=== PATIENT | female | born 1975 | race American Indian/Alaskan Native ===

== ENCOUNTER 2019-03-30 18:06 | Emergency (ER) | payer OTHER ==
--- NOTE | 2019-03-30 18:18 | Event Note ---
ED Screening Note Date of service: 03/30/19 Time: 18:16 ED Screening Note: 43 y o f presents with fever, vomitting, diarhea, with headache x 2days This initial assessment/diagnostic orders/clinical plan/treatment(s) is/are subject to change based on patients health status, clinical progression and re- assessment by fellow clinical providers in the ED. Further treatment and workup at subsequent clinical providers discretion. Patient/guardian urged not to elope from the ED as their condition may be serious if not clinically assessed and managed. Initial orders include: labs,ua acc eval
[2019-03-30] MEDS ORDERED: IBUPROFEN 600 MG TAB PO ONE ×2 (18:20)
[2019-03-30 18:48] LABS: Basophils % (Auto) 0.6 % (0.0-1.8); Eosinophils % (Auto) 0.1 % (0.0-4.3); Hematocrit 37.9 % (30.3-42.9); Hemoglobin 12.6 gm/dl (10.1-14.3); Lymphocytes # (Auto) 0.6 K/mm3 (1.2-5.4); Lymphocytes % (Auto) 17.9 % (13.4-35.0); Mean Corpuscular HGB Conc 33 % (30-34); Mean Corpuscular Volume 92 fl (79-97); Monocytes # (Auto) 0.4 K/mm3 (0.0-0.8); Monocytes % (Auto) 10.3 % (0.0-7.3); Platelet Count 204 K/mm3 (140-440); Red Blood Count 4.12 M/mm3 (3.65-5.03); Red Cell Distribution Width 12.8 % (13.2-15.2)
[2019-03-30 19:17] LABS: Alanine Aminotransferase 9 units/L (7-56); Albumin 3.9 g/dL (3.9-5); BUN/Creatinine Ratio 15; Blood Urea Nitrogen 12 mg/dL (7-17); Calcium 8.9 mg/dL (8.4-10.2)
[2019-03-30 19:18] LABS: Hemolysis Index 2
[2019-03-30] MEDS ORDERED: FAMOTIDINE 20 MG/2 ML INJ IV ONE (20:28)
[2019-03-30] MEDS ORDERED: SODIUM CHLORIDE 0.9% 1000 ML 1,000 ML IV ONE ×2 (20:28→21:12)
[2019-03-30] MEDS ORDERED: ONDANSETRON 4 MG/2 ML INJ IV ONE (20:28)
--- NOTE | 2019-03-30 20:49 | XRay Report ---
CHEST 2 VIEWS INDICATION / CLINICAL INFORMATION: COUGH; Pt. c/o N/V/D, GR, and fever. . COMPARISON: None available. FINDINGS: SUPPORT DEVICES: None. HEART / MEDIASTINUM: The heart size and pulmonary vasculature are normal. LUNGS / PLEURA: No significant pulmonary or pleural abnormality. No pneumothorax. ADDITIONAL FINDINGS: No significant additional findings. IMPRESSION: No acute findings. There is no evidence of pneumonia. Signer Name: Ananda Alatorre MD Signed: 03/30/2019 8:45 PM Workstation Name: [id number]
[2019-03-30] MEDS ORDERED: MORPHINE 4 MG/1 ML INJ IV ONE (21:10)
[2019-03-30] MEDS ORDERED: METOCLOPRAMIDE 10 MG/2 ML INJ IV ONE (21:10)
[2019-03-30] MEDS ORDERED: diphenhydrAMINE 50 MG/ML VIAL IV ONE (21:11)
--- NOTE | 2019-03-30 22:23 | Cat Scan Report ---
CT OF THE ABDOMEN AND PELVIS WITH INTRAVENOUS CONTRAST INDICATION / CLINICAL INFORMATION: Right lower quadrant pain. TECHNIQUE: The patient received 100 cc Omnipaque [address] scans at this location are performed using CT dose reduction for ALARA by means of automated exposure control. COMPARISON: None available. FINDINGS: ABDOMEN: There is a 5 mm nonobstructive calculus in the lower pole the right kidney. The liver, splee n, gallbladder, bile ducts, pancreas, adrenal glands, left kidney and bowel are normal. No adenopathy is seen. The lung bases are clear. PELVIS: The distal ureters and urinary bladder are normal. There is a 1.8 cm corpus luteal cyst in th e right ovary without free fluid. The uterus and left ovary are normal. A normal appendix is present and there is no evidence of diverticulitis. I do not identify a hernia. No acute osseous abnormality is seen. IMPRESSION: 1. No CT evidence of acute appendicitis. 2. Small corpus luteal cyst in the right ovary is a physiologic finding. 3. Nonobstructive right renal calculus. Signer Name: Ananda Alatorre MD Signed: 03/30/2019 10:18 PM Workstation Name: [id number]
[2019-03-30 23:57] LABS: Bilirubin,Urine NEG (Negative); Blood,Urine NEG (Negative); Color,Urine Yellow (Yellow); Mucus,Urine FEW /HPF; Protein,Urine <15 mg/dL mg/dL (Negative); Urobilinogen,Urine < 2.0 mg/dL (<2.0)
--- NOTE | 2019-03-31 01:05 | Emergency Department Report ---
<ALIYAHASHVINNaimaHERIBERTO - Last Filed: 03/31/19 01:00> ED N/V/D HPI - General Chief complaint: Nausea/Vomiting/Diarrhea Stated complaint: MIGRAINE/NAUSEA Source: patient Mode of arrival: Wheelchair Limitations: No Limitations - History of Present Illness Initial comments: Patient is a 43-year-old Togolese female with no past medical history presented to the ED with complaint of acute onset persistent severe diffuse body aches and pains, nasal and sinus congestion, dry cough, intermittent nausea and vomiting and diarrhea, abdominal pain in the right lower quadrant. An intermittent fever of up to 102F for the last 3 days, worse in the last 12 hours. Patient states that she's not been able to keep anything down since the onset of these symptoms. Patient also states that there is not homicidal similar symptoms since she lives alone. patient denies chest pain, shortness of breath, dizziness, syncope, dysuria, urinary frequency and urgency, vaginal bleeding, vaginal discharge, palpitations or headache. MD complaint: nausea, vomiting, diarrhea, abdominal pain, other (fever, headache, lack of appetite) -: Sudden, days(s) (4) Description of Vomiting: food contents, watery Description of Diarrhea: water Associated Abdominal Pain: Yes (RLQ pain) Location: RLQ Radiation: none Severity: severe Pain Scale: 8 Quality: cramping, aching, sharp Consistency: constant Improves with: none Worsens with: none Context: sick contacts Associated Symptoms: denies other symptoms, myalgias, cough, fever/chills, headaches, loss of appetite, malaise, nausea/vomiting. denies: chest pain, diaphoresis, rash, dysuria, shortness of breath, syncope, weakness, other - Related Data Previous Rx's Medication Instructions Recorded Last Taken Type Acetaminophen/Codeine [Tylenol 1 tab PO Q6H PRN #12 tab 03/31/19 Unknown Rx /Codeine # 3 tab] Amoxicillin/Potassium Clav 1 each PO Q12H #20 tablet 03/31/19 Unknown Rx [Augmentin 875-125 Tablet] Famotidine [Pepcid] 20 mg PO Q12H #60 tablet 03/31/19 Unknown Rx Ketorolac [Toradol] 10 mg PO Q8H PRN #20 tablet 03/31/19 Unknown Rx Ondansetron [Zofran ODT TAB] 8 mg PO Q8HR PRN #20 tab.rapdis 03/31/19 Unknown Rx Tamsulosin [Flomax] 0.4 mg PO QDAY #10 03/31/19 Unknown Rx Allergies Allergy/AdvReac Type Severity Reaction Status Date / Time azithromycin [From Zithromax] Allergy Hives Verified 03/31/19 01:23 doxycycline AdvReac Hives Verified 03/31/19 01:22 ED Review of Systems Constitutional: chills, fever, malaise Eyes: denies: eye pain, eye discharge, vision change ENT: congestion. denies: ear pain, throat pain Respiratory: cough. denies: shortness of breath, wheezing Cardiovascular: denies: chest pain, palpitations Endocrine: no symptoms reported Gastrointestinal: abdominal pain, nausea, vomiting, diarrhea Genitourinary: denies: urgency, dysuria, discharge Musculoskeletal: back pain, arthralgia, myalgia. denies: joint swelling Skin: denies: rash, lesions Neurological: headache. denies: weakness, paresthesias Psychiatric: denies: anxiety, depression Hematological/Lymphatic: denies: easy bleeding, easy bruising ED Past Medical Hx - Past Medical History Previous Medical History?: Yes Hx Hypertension: Yes - Surgical History Past Surgical History?: No - Medications Home Medications: Home Medications Medication Instructions Recorded Confirmed Last Taken Type Acetaminophen/Codeine [Tylenol 1 tab PO Q6H PRN #12 tab 03/31/19 Unknown Rx /Codeine # 3 tab] Amoxicillin/Potassium Clav 1 each PO Q12H #20 tablet 03/31/19 Unknown Rx [Augmentin 875-125 Tablet] Famotidine [Pepcid] 20 mg PO Q12H #60 tablet 03/31/19 Unknown Rx Ketorolac [Toradol] 10 mg PO Q8H PRN #20 tablet 03/31/19 Unknown Rx Ondansetron [Zofran ODT TAB] 8 mg PO Q8HR PRN #20 tab.rapdis 03/31/19 Unknown Rx Tamsulosin [Flomax] 0.4 mg PO QDAY #10 03/31/19 Unknown Rx ED Physical Exam - General Limitations: No Limitations General appearance: alert, in no apparent distress - Head Head exam: Present: atraumatic, normocephalic, normal inspection - Eye Eye exam: Present: normal appearance, PERRL, EOMI Pupils: Present: normal accommodation - ENT ENT exam: Present: normal orophraynx, mucous membranes moist, other (grossly congested nasal passages, frontal sinus tenderness to palpation) - Neck Neck exam: Present: normal inspection, full ROM - Respiratory Respiratory exam: Present: normal lung sounds bilaterally. Absent: respiratory distress, wheezes, rales, rhonchi, chest wall tenderness, accessory muscle use, decreased breath sounds, prolonged expiratory - Cardiovascular Cardiovascular Exam: Present: regular rate, normal rhythm, normal heart sounds. Absent: systolic murmur, diastolic murmur, rubs, gallop - GI/Abdominal GI/Abdominal exam: Present: soft, tenderness (mildly tender to palpation of right lower quadrant, no guarding), normal bowel sounds. Absent: distended, guarding, rebound, hyperactive bowel sounds, organomegaly - Extremities Exam Extremities exam: Present: normal inspection, full ROM, normal capillary refill - Back Exam Back exam: Present: normal inspection, full ROM. Absent: tenderness, CVA tenderness (R), muscle spasm, paraspinal tenderness - Neurological Exam Neurological exam: Present: alert, oriented X3, CN II-XII intact, normal gait, reflexes normal - Psychiatric Psychiatric exam: Present: normal affect, normal mood - Skin Skin exam: Present: warm, dry, intact, normal color. Absent: rash ED Medical Decision Making - Lab Data Result diagrams: 03/30/19 18:21 03/30/19 18:21 - Radiology Data Radiology results: [place] [address] Cat Scan Report Signed Patient: WALDEMAR BRIGGS MR#: [id number] 60 : 1975 Acct:[id number] Age/Sex: 43 / F ADM Date: 03/30/19 Loc: ED Attending Dr: Ordering Physician: OLIVER LEBRON Date of Service: 03/30/19 Procedure(s): CT abdomen pelvis w con Accession Number(s): [id number] cc: OLIVER LEBRON CT OF THE ABDOMEN AND PELVIS WITH INTRAVENOUS CONTRAST INDICATION / CLINICAL INFORMATION: Right lower quadrant pain. TECHNIQUE: The patient received 100 cc Omnipaque [address] scans at this location are performed using CT dose reduction for ALARA by means of automated exposure control. COMPARISON: None available. FINDINGS: ABDOMEN: There is a 5 mm nonobstructive calculus in the lower pole the right kidney. The liver, spleen, gallbladder, bile ducts, pancreas, adrenal glands, left kidney and bowel are normal. No adenopathy is seen. The lung bases are clear. PELVIS: The distal ureters and urinary bladder are normal. There is a 1.8 cm corpus luteal cyst in the right ovary without free fluid. The uterus and left ovary are normal. A normal appendix is present and there is no evidence of diverticulitis. I do not identify a hernia. No acute osseous abnormality is seen. IMPRESSION: 1. No CT evidence of acute appendicitis. 2. Small corpus luteal cyst in the right ovary is a physiologic finding. 3. Nonobstructive right renal calculus. Signer Name: Ananda Alatorre MD Signed: 03/30/2019 10:18 PM Workstation Name: [id number] Transcribed By: RT Dictated By: Ananda Alatorre MD Electronically Authenticated By: Ananda Alatorre MD Signed Date/Time: 03/30/19 2218 Findings [facility] [address] [place] [address] XRay Report Signed Patient: WALDEMAR BRIGGS MR#: [id number] 60 : 1975 Acct:[id number] Age/Sex: 43 / F ADM Date: 03/30/19 Loc: ED Attending Dr: Ordering Physician: OLIVER LEBRON Date of Service: 03/30/19 Procedure(s): XR chest routine 2V Accession Number(s): [id number] cc: OLIVER LEBRON Fluoro Time In Minutes: CHEST 2 VIEWS INDICATION / CLINICAL INFORMATION: COUGH; Pt. c/o N/V/D, GR, and fever. . COMPARISON: None available. FINDINGS: SUPPORT DEVICES: None. HEART / MEDIASTINUM: The heart size and pulmonary vasculature are normal. LUNGS / PLEURA: No significant pulmonary or pleural abnormality. No pneumothorax. ADDITIONAL FINDINGS: No significant additional findings. IMPRESSION: No acute findings. There is no evidence of pneumonia. Signer Name: Ananda Alatorre MD Signed: 03/30/2019 8:45 PM Workstation Name: [id number] Transcribed By: RT Dictated By: Ananda Alatorre MD Electronically Authenticated By: Ananda Alatorre MD Signed Date/Time: 03/30/192044 DD/ 43 TD/TT: - Medical Decision Making This is a 43-year-old [place]ogol[place] female with no past medical history presented to the ED with complaint of acute onset persistent severe diffuse body aches and pains, nasal and sinus congestion, dry cough, intermittent nausea and vomiting and diarrhea, abdominal pain in the right lower quadrant. An intermittent fever of up to 102F for the last 3 days, worse in the last 12 hours. In the ED, patient is alert and oriented 3 and is not in distress, febrile and tachycardic in triage. Chest x-ray shows no acute cardiopulmonary abnormalities or pneumonitis. Abdomen pelvis CT scan with contrast shows nonobstructing 4 mm kidney stone on the distal pole of the right kidney, also a 1.8 cm ovarian cyst on the right ovary but no acute appendicitis identified in this exam. The rest of the abdomen pelvis CT scan with contrast showed no acute process. Patient was treated in the ED for pain, for fever and also given antiemetics and antacids. Patient also received normal saline 1 L IV bolus. Lab test results were reviewed and are all nonactionable including repeated influenza test which is negative. On reevaluation, fever resolved, she has also resolved as well as nausea and vomiting. Patient was able to drink plenty of fluids in the ED with no nausea or vomiting after the treatment. Patient was therefore discharged home on medications and was advised to maintain a clear liquid diet for 12-24 hours, and follow-up with her primary care physician in 5-7 days for reevaluation or return to the ED immediately if symptoms get worse. - Differential Diagnosis URI; FLU; PNEUMONIA; APPENDICITIS; UTI; GASTROENTERITIS ED Disposition Clinical Impression: Fever and chills, Nausea, vomiting and diarrhea, Viral gastroenteritis, Acute upper respiratory infection, Sinus headache, Kidney stone on right side Ovarian cyst Qualifiers: Laterality: right Qualified Code(s): N83.201 - Unspecified ovarian cyst, right side Disposition: - TO HOME OR SELFCARE Is pt being admited?: No Does the pt Need Aspirin: No Condition: Stable Instructions: Kidney Stones (ED), Fever in Adults (ED), Gastroenteritis (ED), Acute Nausea and Vomiting (ED), Abdominal Pain (ED) Additional Instructions: Maintain a clear liquid diet for 12-24 hours, take medication with food, drink plenty of fluids and follow-up with your primary care physician in 10 days for reevaluation. Return to the ED immediately if symptoms get worse. Prescriptions: Amoxicillin/Potassium Clav [Augmentin 875-125 Tablet] 1 each PO Q12H #20 tablet Tamsulosin [Flomax] 0.4 mg PO QDAY #10 Famotidine [Pepcid] 20 mg PO Q12H #60 tablet Ketorolac [Toradol] 10 mg PO Q8H PRN #20 tablet PRN Reason: Pain Acetaminophen/Codeine [Tylenol /Codeine # 3 tab] 1 tab PO Q6H PRN #12 tab PRN Reason: Pain , Severe (7-10) Ondansetron [Zofran ODT TAB] 8 mg PO Q8HR PRN #20 tab.rapdis PRN Reason: Nausea Referrals: ANDRIY MARTINEZ MD [Staff Physician] - 7-10 days Forms: Work/School Release Form(ED) Time of Disposition: 01:03 Print Language: DOMINICAN <VANNESA [place] - Last Filed: 03/31/19 23:27> ED Review of Systems ROS: Stated complaint: MIGRAINE/NAUSEA Other details as noted in HPI ED Course Vital Signs 03/30/19 03/30/19 03/30/19 18:18 19:20 21:26 Temperature 101.2 F H Pulse Rate 81 Respiratory 16 15 18 Rate Blood Pressure 172/101 [Right] O2 Sat by Pulse 99 Oximetry 03/31/19 01:25 Temperature 98.4 F Pulse Rate 75 Respiratory 16 Rate Blood Pressure 148/99 [Right] O2 Sat by Pulse 99 Oximetry ED Medical Decision Making - Lab Data Result diagrams: 03/30/19 18:21 03/30/19 18:21 Critical care attestation.: If time is entered above; I have spent that time in minutes in the direct care of this critically ill patient, excluding procedure time. ED Disposition Is pt being admited?: No
[2019-03-31 01:32] VITALS: BP 148/99
== END 2019-03-31 01:25 | disposition home or self-care (01) ==
LOC: ED 18:06
DX: N83.201 Unspecified ovarian cyst, right side (principal); A08.4 Viral intestinal infection, unspecified; J06.9 Acute upper respiratory infection, unspecified; N20.0 Calculus of kidney; I10 Essential (primary) hypertension; Z79.899 Other long term (current) drug therapy; Z88.1 Allergy status to other antibiotic agents
CPT/HCPCS: 36415; 71046; 74177; 80053; 81001; 83690; 84702; 85025; 87400; 96361; 96374; 96375; 99284; J1200; J2270; J2405; J2765; J7030; Q9967